=== PATIENT | male | born 1945 | race Caucasian/White ===

== ENCOUNTER 2021-10-29 08:56 | Emergency (ER) | payer OTHER ==
[~2021-10-29] VITALS: Ht 167.6 cm; Wt 65.9 kg
[2021-10-29] MEDS ORDERED: TERBINAFINE HY250 MG PO (09:52)
[2021-10-29] MEDS ORDERED: CEPHALEXIN500 MG PO (09:52)
[2021-10-29 10:22] VITALS: BP 165/88
== END 2021-10-29 10:22 | disposition home or self-care (01) | DRG 607 ==
LOC: ED 08:56
DX: B35.4 Tinea corporis (principal); L03.116 Cellulitis of left lower limb; I10 Essential (primary) hypertension; E11.9 Type 2 diabetes mellitus without complications; Z95.2 Presence of prosthetic heart valve

== ENCOUNTER 2021-11-11 13:13 | Emergency (ER) | payer OTHER ==
[~2021-11-11] VITALS: Ht 167.6 cm; Wt 67.8 kg
[~2021-11-11 13:13] MED LIST: CEPHALEXIN500 MG PO; TERBINAFINE HY250 MG PO
[2021-11-11] MEDS ORDERED: TERBINAFINE250 M1 PO (16:20)
[2021-11-11] MEDS ORDERED: LAMISIL AT1 % EX (16:20)
[2021-11-11 16:43] VITALS: BP 150/81
== END 2021-11-11 16:43 | disposition home or self-care (01) | DRG 603 ==
LOC: ED 13:13
DX: L03.116 Cellulitis of left lower limb (principal); B35.6 Tinea cruris; I10 Essential (primary) hypertension; E11.9 Type 2 diabetes mellitus without complications; Z95.4 Presence of other heart-valve replacement